=== PATIENT | female | born 2000 | race Two or more races ===

== ENCOUNTER 2024-12-29 10:18 | Emergency (ER) | payer OTHER, SELFPAY ==
[2024-12-29 10:25] VITALS: BP 128/89; PULSE 72; O2SAT 98
[2024-12-29 10:26] VITALS: BP 135/70; PULSE 72; RESP 16; TEMP 36.2; O2SAT 99; BMI 34.3
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
[2024-12-29] MEDS: Acetaminophen 325 MG TABLET 650 MG PO (12:04)
[2024-12-29 12:52] VITALS: BP 113/73; PULSE 60; RESP 16; TEMP 35.4; O2SAT 99
--- NOTE | 2024-12-29 13:31 | PC.NURSE ---
Pt still awaiting CT and is getting upset it has been taking so long. Checked in with cat scan and was made aware she is still towards the bottom of the list. Provider made aware of the situation.
--- NOTE | 2024-12-29 14:02 | PC.NURSE ---
Pt asking to leave. Pt made aware of risks of leaving without getting Ct scan. Pt agreed to risks. Provider was previously made aware that pt was getting upset and wanting to leave. Pt needed to leave due to not having childcare. Provider made aware
[2024-12-29 14:34] VITALS: BP 113/73; PULSE 60; RESP 16; TEMP 36.9; O2SAT 99
== END 2024-12-29 14:35 | disposition left against medical advice (07) ==
PROVIDERS: Emergency Provider Emergency Medicine Emergency Medical Services
DX: S19.9XXA Unspecified injury of neck, initial encounter (principal); R51.9 Headache, unspecified; M54.2 Cervicalgia; V43.52XA Car driver injured in collision with other type car in traffic accident, initial encounter; Y93.9 Activity, unspecified; Y92.410 Unspecified street and highway as the place of occurrence of the external cause; Y99.8 Other external cause status
CPT/HCPCS: 99283; 99284